=== PATIENT | male | born 1960 | race Caucasian/White ===

== ENCOUNTER 2016-08-29 12:44 | Emergency (ER) | payer OTHER ==
[~2016-08-29] VITALS: Ht 175.3 cm; Wt 108.9 kg
[~2016-08-29 12:44] MED LIST: ASPI-482 PO
[2016-08-29 13:29] LABS: BASO % 1 % (0-3); EOS % 1 % (0-3); HEMATOCRIT 45.2 % (39.0-53.0); HEMOGLOBIN 15.7 g/dL (13.0-17.5); LYMPH # 1.4 x10^3/uL (1.0-4.8); LYMPH % 18 % (24-48); MEAN CORPUSCULAR HEMOGLOBIN 29 pg (25-35); MEAN CORPUSCULAR HGB CONC 35 g/dL (31-37); MEAN CORPUSCULAR VOLUME 84 fL (79-100); MONO % 9 % (0-9); NEUT % 72 % (31-73); PLATELET COUNT 287 x10^3/uL (140-400); RED CELL DISTRIBUTION WIDTH 14.3 % (11.5-14.5); WHITE BLOOD COUNT 7.6 x10^3/uL (4.0-11.0)
--- NOTE | 2016-08-29 13:54 | RAD ---
Exam performed: Left lower extremity venous Doppler. Clinical Indication: Left leg pain and swelling Date of Service:08/29/16 Comparison : None available Discussion: Multiple longitudinal and transverse high resolution real-time images of the venous system of left lower extremity were obtained with color and Doppler sampling and spectral analysis. The common femoral, superficial femoral, popliteal and proximal calf veins are all patent and demonstrate normal flow and compressibility. Normal respiratory phasicity and augmentation is present. Impression: Normal color duplex ultrasound of the venous system of left lower extremity.
--- NOTE | 2016-08-29 13:57 | PHYS DOC ---
Past Medical History Past Medical History: No Pertinent History Past Surgical History: Tonsillectomy Alcohol Use: Occasionally Drug Use: None Adult General Chief Complaint Chief Complaint: left leg pain swelling HPI HPI Patient is a 56 year old male who presents with left leg pain. He's noted pain and swelling since Friday, 2 days ago. [place] [facility] [place] and negative, but the swelling has increased as has the pain. Patient's not take anything for the symptoms, no known injuries. 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 No history of DVTs, no trauma or falls noted. It does worsen when he bears weight on the leg, he has full range of motion, no fevers. Review of Systems Review of Systems Constitutional: Denies fever or chills [] Eyes: Denies change in visual acuity, redness, or eye pain [] HENT: Denies nasal congestion or sore throat [] Respiratory: Denies cough or shortness of breath [] Cardiovascular: Denies chest pain GI: Denies abdominal pain, nausea, vomiting, bloody stools or diarrhea [] : Denies dysuria or hematuria [] Musculoskeletal: Denies back pain Integument: Denies rash or skin lesions [] Neurologic: Denies headache, focal weakness or sensory changes [] Allergies Allergies Allergies Coded Allergies Type Severity Reaction Last Updated Verified No Known Drug Allergies 02/24/15 No Physical Exam Physical Exam Constitutional: Well developed, well nourished, no acute distress, non-toxic appearance. [] HENT: Normocephalic, atraumatic, bilateral external ears normal, oropharynx moist, no oral exudates, nose normal. [] Eyes: PERRLA, EOMI, conjunctiva normal, no discharge. [] Neck: Normal range of motion, no tenderness, supple, no stridor. [] Cardiovascular:Heart rate regular rhythm, no murmur [] Lungs & Thorax: Bilateral breath sounds clear to auscultation []Back: No tenderness, no CVA tenderness. [] Extremities: left LE with trace edema/knee effusion, FROM, + ttp in proximal calf but neg homen's. Neurologic: Alert and oriented X 3, normal motor function, normal sensory function, no focal deficits noted. [] Psychologic: Affect normal, judgement normal, mood normal. [] Current Patient Data Vital Signs Vital Signs Date Time Temp Pulse Resp B/P (MAP) Pulse Ox O2 Delivery O2 Flow Rate FiO2 08/29/16 14:00 82 153/94 (113) 92 Room Air 08/29/16 12:45 97.9 18 97.9 Lab Values Laboratory Tests Test 08/29/16 13:10 08/29/16 13:57 White Blood Count 7.6 x10^3/uL (4.0-11.0) Red Blood Count 5.40 x10^6/uL (4.30-5.70) Hemoglobin 15.7 g/dL (13.0-17.5) Hematocrit 45.2 % (39.0-53.0) Mean Corpuscular Volume 84 fL (79-100) Mean Corpuscular Hemoglobin 29 pg (25-35) Mean Corpuscular Hemoglobin Concent 35 g/dL (31-37) Red Cell Distribution Width 14.3 % (11.5-14.5) Platelet Count 287 x10^3/uL (140-400) Neutrophils (%) (Auto) 72 % (31-73) Lymphocytes (%) (Auto) 18 % (24-48) L Monocytes (%) (Auto) 9 % (0-9) Eosinophils (%) (Auto) 1 % (0-3) Basophils (%) (Auto) 1 % (0-3) Neutrophils # (Auto) 5.5 x10^3uL (1.8-7.7) Lymphocytes # (Auto) 1.4 x10^3/uL (1.0-4.8) Monocytes # (Auto) 0.7 x10^3/uL (0.0-1.1) Eosinophils # (Auto) 0.1 x10^3/uL (0.0-0.7) Basophils # (Auto) 0.0 x10^3/uL (0.0-0.2) POC Hemoglobin 16.0 g/dL (14-18) POC Hematocrit 47 % (37-52) POC Sodium 137 mmol/L (135-145) POC Potassium 3.7 mmol/L (3.5-5.0) POC Chloride 98 mmol/L (98-110) POC Total CO2 23 mmol/L (23-32) Anion Gap 21 mmol/L (6-14) H POC Blood Urea Nitrogen 17 mg/dL (8-26) POC Creatinine 0.9 mg/dL (0.5-1.4) Glucose Level 135 mg/dL (70-99) H POC Ionized Calcium (Mathew) 1.14 mmol/L (1.13-1.32) Laboratory Tests 08/29/16 13:10 Laboratory Tests 08/29/16 13:57 EKG EKG [] Radiology/Procedures Radiology/Procedures US venous doppler left leg: Exam performed: Left lower extremity venous Doppler. Clinical Indication: Left leg pain and swelling Date of Service:08/29/16 Comparison : None available Discussion: Multiple longitudinal and transverse high resolution real-time images of the venous system of left lower extremity were obtained with color and Doppler sampling and spectral analysis. The common femoral, superficial femoral, popliteal and proximal calf veins are all patent and demonstrate normal flow and compressibility. Normal respiratory phasicity and augmentation is present. Impression: Normal color duplex ultrasound of the venous system of left lower extremity. [] Course & Med Decision Making Course & Med Decision Making Pertinent Labs and Imaging studies reviewed. (See chart for details) Patient declined any pain medication. No signs of DVT on venous ultrasound. 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 Recommended compressive dressing, elevation, ibuprofen, return precautions given for any signs of compartment syndrome, infection, fever. Follow-up with PCP. Latanya Disclaimer Dragon Disclaimer This electronic medical record was generated, in whole or in part, using a voice recognition dictation system. Departure Departure Impression: Primary Impression: Peripheral edema Disposition: HOME, SELF-CARE Condition: STABLE Referrals: NO PCP (PCP) Scripts Ibuprofen (IBUPROFEN) 600 Mg Tablet 600 MG PO PRN Q6HRS Y for INFLAMMATION, #20 TAB take with food or milk Prov: ELISEO DELGADO MD 08/29/16 ELISEO DELGADO MD August 29, 2016 13:57
[2016-08-29 14:00] VITALS: BP 153/94
[2016-08-29 14:05] LABS: POTASSIUM ISTAT 3.7 mmol/L (3.5-5.0)
[2016-08-29] MEDS ORDERED: IBUP-1007 PO (14:36)
== END 2016-08-29 14:40 | disposition home or self-care (01) ==
LOC: ER 12:44
DX: R60.0 Localized edema (principal)
CPT/HCPCS: 36415; 80047; 85027; 93971; 99285-25

== ENCOUNTER 2017-01-07 12:20 | Inpatient (IN) | payer OTHER ==
[2017-01-07] VITALS (12 sets, daily range): BP systolic 114–146; BP diastolic 70–98
[~2017-01-07] VITALS: Ht 175.3 cm; Wt 106.3 kg
[~2017-01-07 12:20] MED LIST changes: +IBUP-1007 PO
[2017-01-07] MEDS ORDERED: IOHEXOL 350 MG/ML 100 ML VIAL. ONE (12:47)
[2017-01-07] MEDS ORDERED: LIDOCAINE 2% 20 ML VIAL. ONE (12:48)
[2017-01-07] MEDS ORDERED: VERAPAMIL 5 MG/2 ML VIAL. ONE (13:13)
[2017-01-07] MEDS ORDERED: MIDAZOLAM HCL/PF 2 MG/2 ML VIAL. ONE ×2 (13:13→13:35)
[2017-01-07] MEDS ORDERED: HEPARIN for IV BOLUS 10,000 UNIT/10 ML VIAL. ONE (13:13)
[2017-01-07] MEDS ORDERED: fentaNYL PF VIAL 100 MCG/2 ML VIAL ONE (13:14)
[2017-01-07] MEDS ORDERED: NITROGLYCERIN 200 MCG/2 ML SYRINGE FOR CATH/VASC LAB. ONE (13:14)
--- NOTE | 2017-01-07 13:32 | PDOC ---
MODERATE SEDATION ASSESSMENT RISKS/ALTERNATIVES Risks/Alternatives Risks and alternatives of this type of sedation and procedure discussed with: RISK/ALTERNATIVES: Patient H & P ON CHART H & P H & P on chart and reviewed for co-morbid conditions and appropriate labs. H&P ON CHART: Yes STATUS PREG STATUS ASSESSED: N/A MEDS/ALLERGIES REVIEWED Meds/Allergies Reviewed Medications and Allergies including time and route of recently administered narcotics and sedatives. MEDS/ALLERGIES REVIEWED: Yes ASA RATING ASA RATING: III AIRWAY ASSESSMENT Airway Assessment Airway patency, oral function limitations, presence of caps, crowns, dentures, partials, and ability to extend neck assessed. AIRWAY ASSESSMENT: Yes MALLAMPATI SCORE MALLAMPATI SCORE: II PRE-SEDATION ASSESSMENT PRE-SEDATION ASSESSMENT: Yes JUAN PABLO COLEMAN MD Jan 07, 2017 13:32
[2017-01-07] MEDS ORDERED: VERAPAMIL 5 MG/2 ML VIAL. IART ONE (13:45)
[2017-01-07] MEDS ORDERED: NITROGLYCERIN 200 MCG/2 ML SYRINGE FOR CATH/VASC LAB. IART ONE (13:45)
[2017-01-07] MEDS ORDERED: fentaNYL PF VIAL 100 MCG/2 ML VIAL IV ONE (13:45)
[2017-01-07] MEDS ORDERED: MIDAZOLAM HCL/PF 2 MG/2 ML VIAL. IV ONE ×2 (13:45)
[2017-01-07] MEDS ORDERED: LIDOCAINE 2% 20 ML VIAL. IJ ONE (13:45)
[2017-01-07] MEDS ORDERED: IOHEXOL 350 MG/ML 100 ML VIAL. IART ONE (13:45)
[2017-01-07] MEDS ORDERED: HEPARIN for IV BOLUS 10,000 UNIT/10 ML VIAL. IART ONE (13:45)
[2017-01-07] MEDS ORDERED: ADENOSINE 90 MG/30 ML VIAL. IV ONE (13:59)
[2017-01-07] MEDS ORDERED: CONTRAST GIVEN MC PRN (14:00)
[2017-01-07] MEDS ORDERED: ATROPINE 0.5 MG/5 ML DISP.SYRIN. ONE (14:12)
[2017-01-07] MEDS ORDERED: TIROFIBAN 12.5MG -0.9% NS 250 ML IV ONE (14:12)
[2017-01-07] MEDS ORDERED: HEPARIN for IV BOLUS 10,000 UNIT/10 ML VIAL. IV ONE (14:15)
[2017-01-07] MEDS ORDERED: ADENOSINE 90 MG in IV NORMAL SALINE 50ML 90 ML IV ONE (14:15)
[2017-01-07] MEDS: TIROFIBAN 12.5MG -0.9% NS 250 ML IV PRN ×2 (14:17→23:32)
[2017-01-07] MEDS ORDERED: TICAGRELOR 90 MG TABLET. ONE (14:36)
[2017-01-07] MEDS ORDERED: TICAGRELOR 90 MG TABLET. PO ONE (15:00)
[2017-01-07] MEDS ORDERED: ATOR40TA PO (19:57)
[2017-01-07] MEDS ORDERED: LISI1TAB3 PO (19:57)
[2017-01-07] MEDS ORDERED: ATORVASTATIN CALCIUM 40 MG TABLET. PO SCH (23:00)
[2017-01-07] MEDS: TICAGRELOR 90 MG TABLET. PO SCH (23:06)
[2017-01-08 03:05] VITALS: BP 117/85
[2017-01-08 07:00] VITALS: BP 122/87
[2017-01-08] MEDS ORDERED: ASPIRIN ENTERIC COATED 81 MG TABLET.DR. PO SCH (08:00)
[2017-01-08] MEDS: TICAGRELOR 90 MG TABLET. PO SCH (09:46)
--- NOTE | 2017-01-08 09:48 | CARD ---
APPROVED REPORT Procedure(s) performed: MODERATE SEDATION: 90 MIN Coronary angiography FFR LAD, LCx PCI of the RCA HISTORY The patient is a 56 year-old male with a history of : hypertension, dyslipidemia. INDICATION The indication(s) include : unstable angina . PROCEDURE NARRATIVE The patient was brought electively to the cardiac catheterization lab. A timeout was performed confi rming the patient's name, date of , procedure, and site of procedure. All necessary personnel w ere wearing the appropriate protective equipment and radiation monitor devices. After explaining the risks and benefits of the procedure and alternatives, informed consent was obtained. (See nursing no yani for medications administered). The right wrist was sterilely prepped and draped in the usual fas hion. The right wrist was infiltrated with 1 mL of 2% lidocaine for subcutaneous anesthesia. A 6 Fr ench Terumo glide sheath was inserted into the right radial artery without difficulty. Right and lef t coronary angiography was performed using a 6Fr TIG 4.0 catheter. CORONARY ANGIOGRAPHY: LM is a large caliber vessel with normal angiographic appearance. LAD is a large caliber vessel with a mid 50% stenosis at the origin of D1. D1 is a moderate caliber vessel with an ostial 50% stenosis. LCx is a moderate to large caliber non-dominant vessel with a mid 60% stenosis at the origin of OM1. OM1 is a moderate caliber vessel with normal angiographic appearance. LPL is a large caliber vesse with a proximal 20% stenosis. RCA is a large caliber dominant vessel with a long proximal to mid 60-80% stenosis. RPDA is a moderate caliber vessels with normal angiographic appearance. INTERVENTIONAL TECHNIQUE: FFR OF THE LAD/LCX Due to the presenting symptoms with unstable angina and intermediate LAD/Lcx lesions, an iFR and FFR study was performed. Heparin was used for anticoagulation to achieve an ACT > 200. Through a 6F EBU 3 .5 guide catheter, a 0.014'' [place] Pressure wire was advanced to the distal LAD after appropriate n ormalization. iFR was 0.89 and FFR was 0.83. Next, the wire was directed into the Lcx, and an iFR was 0.96. Due to normal values, further intervention was deferred. INTERVENTIONAL TECHNIQUE: PCI OF THE RCA Tirofiban was also administered in addition to Heparin. Through a 6F JR4 guide catheter, a 0.014'' pr owater wire was advanced to the distal RCA. Next, a 2.5/20 balloon was used perform angioplasty after which the lesion was stented with overlapping 3.0/33 and 3.25/8 Xience MARCIN. The lesion stents were p ost-dilated in the proximal half with a 3.5 NC compliant balloon. The patient tolerated the procedure well and there were no immediate complications. All catheter exchanges and advancements were performed over a guidewire. At case completion the rig ht radial sheath was removed and a Terumo radial band was applied with 13 ml of air. The patient blane erated the procedure well and there were no immediate complications.The patient was given 180mg of Ti cagrelor at case completion. Conclusion 1. Three vessel CAD 2. Negative FFR of the Lcx and LAD 3. Successful PCI of the RCA. Recommendations ASA 81mg daily indefinitely Ticagrelor 90mg bid x 1 year Statin therapy Cardiac rehab
[2017-01-08] MEDS ORDERED: METO25TA4 PO (10:32)
[2017-01-08] MEDS ORDERED: LISI10TA2 PO (10:32)
[2017-01-08] MEDS ORDERED: TICA90TA PO (10:32)
[2017-01-08] MEDS ORDERED: NITR0.4T22 SL (10:58)
[2017-01-08 11:00] VITALS: BP 135/76
--- NOTE | 2017-01-08 14:32 | PDOC3 ---
Discharge Summary Visit Information Date of Admission: Jan 07, 2017 Date of Discharge: Jan 08, 2017 Admitting Diagnosis Comment: Exertional chest pain Hypertension Hyperlipidemia Final Diagnosis CAD Hypertension Hyperlipidemia Brief Hospital Course Allergies Allergies Coded Allergies Type Severity Reaction Last Updated Verified No Known Drug Allergies 02/24/15 No Vital Signs Vital Signs Date Time Temp Pulse Resp B/P (MAP) Pulse Ox O2 Delivery O2 Flow Rate FiO2 01/08/17 11:00 98.3 75 19 135/76 (95) 95 Room Air 98.3 Brief Hospital Course Mr. Livingston is a 56 old male who presented to [facility] with complaints of exertional dyspnea relieved with nitroglycerin, which gave suspicion for angina. AMI was ruled out. Recent MPI was normal, but given presenting symptoms/recurrent chest pain, significant family history of premature coronary disease, and multiple risk factors, transfer to [facility] for cardiac cath for definitive evaluation was recommended. Coronary angiogram revealed three vessel CAD with negative FFR of the Lcx and LAD. Patient underwent successful PCI with overlapping 3.0/33 and 3.25/8 Xience MARCIN. Patient tolerated procedure well and was monitored overnight without acute complications. Right radial arteriotomy site soft, clean, and dry. No erythema , ecchymosis, or hematoma present. Neurovascular status intact. Lungs CTA. Telemetry without significant arrhythmia. DAPT with ASA and Brilinta initiated along with addition of BB. Post procedure instructions reviewed and handout provided. Patient to follow up in our office with Dr. Cortes in 4 weeks. Referred to cardiac rehab. Discharge Information Condition at Discharge: Improved Follow Up: Weeks (4) Disposition/Orders: D/C to Home Scheduled Aspirin (Aspir 81), 1 TAB PO DAILY, (Reported) Atorvastatin Calcium (Lipitor), 1 TAB PO QHS, (Reported) Lisinopril (Lisinopril), 1 TAB PO DAILY Metoprolol Tartrate (Metoprolol Tartrate), 1 TAB PO BID Ticagrelor (Brilinta), 90 MG PO BID Scheduled PRN Nitroglycerin (NITROGLYCERIN SubLingual), 0.4 MG SL PRN Q5MIN PRN for CHEST PAIN Discontinued Medications Ibuprofen (Ibuprofen), 600 MG PO PRN Q6HRS PRN for INFLAMMATION Lisinopril/Hydrochlorothiazide (Lisinopril-Hctz 10-12.5 Mg Tab), 1 TAB PO DAILY, (Reported) Patient Instructions Patient Instructions GENERAL INSTRUCTIONS: 1. Your dressing should be removed prior to leaving the hospital. 2. It is OK to shower the day after your procedure. 3. If you received stents, be sure to carry your stent information card with you in your wallet/purse at all times. 4. Call the office immediately at [phone] if you notice any fever or if there is redness, worsening tenderness/pain, increased bruising, or drainage from the puncture site. 5. Should you have bleeding from the site, lie down immediately & put pressure on the site. The pressure should be hard enough to stop the bleeding. Have the nearest person call 911. DO NOT try to drive to the ER with active bleeding. 6. If you notice a change in color, coolness to touch, or loss of feeling in the affected extremity, come to the emergency room. Please have someone drive you or call 911 if no one is available. DO NOT drive yourself. 7. If you normally take glucophage (metformin), please do not take this medicine for 48 hours following your procedure. 8. DO NOT STOP TAKING YOUR PLAVIX OR ASPIRIN UNLESS IT IS CLEARED BY A OFFAL TRIMMER OF YOUR ANALYTICS CONSULTANT AT OUR OFFICE. 9. QUIT SMOKING: the [place] [employer], [place] [employer], & [place] [employer] have cessation resources available on their websites 10. Please have someone available to drive you home from the hospital as you may be limited by sedation medications given during the procedure. Radial Artery (Wrist) access: 1. No pushing, pulling, lifting, typing, or anything that requires repetitive use/movement of the affected wrist for 3 days following your procedure. 2. OK to drive the day following your procedure. (This is because of effects of sedating medications.) Call the office at [phone] for any questions or concerns. MARKELL CASTELAN APRN Jan 08, 2017 14:32
--- NOTE | 2017-01-08 15:14 | CARD ---
APPROVED REPORT EXAM: Two-dimensional and M-mode echocardiogram with Doppler and color Doppler. Other Information Quality : Average Rhythm : NSR INDICATION Cardiac Disease: CAD 2D DIMENSIONS RVDd3.5 (2.9-3.5cm)Left Atrium(2D)4.0 (1.6-4.0cm) IVSd1.1 (0.7-1.1cm)Aortic Root(2D)3.1 (2.0-3.7cm) LVDd5.1 (3.9-5.9cm)LVOT Diameter2.2 (1.8-2.4cm) PWd1.1 (0.7-1.1cm)LVDs3.3 (2.5-4.0cm) FS (%) 35.7 %SV81.8 ml LVEF(%)64.9 (>50%) Aortic Valve AoV Peak Pablo.115.2cm/sAoV VTI23.6cm AO Peak GR.5.3mmHgLVOT Peak Pablo.93.5cm/s LVOT VTI 19.02cmAO Mean GR.3mmHg ANDRIY (VMAX)3.38or4MMQ (VTI)3.13cm2 Mitral Valve MV E Sqpkebuo37.7cm/sMV DECEL [id number] MV A Fvhjqbsu41.1cm/sMV ESR12op E/A Ratio1.2MV A [id number] MVA (PHT)4.58cm2 TDI E/Lateral E'5.6E/Medial E'8.7 Pulmonary Valve PV Peak Gqhsjkbj34.5cm/sPV Peak Grad.3mmHg RVOT VTI14.0cm Tricuspid Valve TR P. Wxtxbjar087ep/sRAP [id number] TR Peak Gr.35msKaMMCZ90qkAp LEFT VENTRICLE The left ventricle is normal size. There is normal left ventricular wall thickness. Left ventricle sy stolic function is normal. The Ejection Fraction is 60-65%. There is normal LV segmental wall motion. The left ventricular diastolic function and filling is normal for age. There is no ventricular septa l defect visualized. RIGHT VENTRICLE The right ventricle is normal size. The right ventricular systolic function is normal. ATRIA The left atrium size is normal. The right atrium size is normal. The interatrial septum is intact wit h no evidence for an atrial septal defect or patent foramen ovale as noted on 2-D or Doppler imaging. AORTIC VALVE The aortic valve is mildly calcified. The aortic valve is trileaflet. Doppler and Color Flow revealed no significant aortic regurgitation. There is no significant aortic valvular stenosis. MITRAL VALVE The mitral valve is normal in structure and function. There is no mitral valve stenosis. Doppler and Color Flow revealed mild mitral regurgitation. TRICUSPID VALVE The tricuspid valve is normal in structure and function. Doppler and Color Flow revealed mild tricusp id regurgitation. The PA pressure was estimated at 27 mmHg. There is no tricuspid valve stenosis. PULMONIC VALVE The pulmonic valve is not well visualized. Doppler and Color Flow revealed no pulmonic valvular regur gitation. There is no pulmonic valvular stenosis. GREAT VESSELS The aortic root is normal in size. The ascending aorta is normal in size. The IVC was not visualized. PERICARDIAL EFFUSION There is no evidence of significant pericardial effusion. Critical Notification Critical Value: No <Conclusion> Left ventricle systolic function is normal. The Ejection Fraction is 60-65%. There is normal LV segmental wall motion. Mild mitral regurgitation. Mild tricuspid regurgitation. The PA pressure was estimated at 27 mmHg. There is no evidence of significant pericardial effusion.
== END 2017-01-08 16:00 | disposition home or self-care (01) | DRG 247 ==
LOC: 2 NORTH 12:34
PROVIDERS: ADMIT Internal Medicine Cardiovascular Disease; ATTEND Internal Medicine Cardiovascular Disease
PROC: 027034Z Dilation of Coronary Artery, One Artery with Drug-eluting Intraluminal Device, Percutaneous Approach (ICD-10-PCS; principal; 2017-01-08)
PROC: 4A023N7 Measurement of Cardiac Sampling and Pressure, Left Heart, Percutaneous Approach (ICD-10-PCS; 2017-01-08)
PROC: B2111ZZ Fluoroscopy of Multiple Coronary Arteries using Low Osmolar Contrast (ICD-10-PCS; 2017-01-08)
DX: I25.110 Atherosclerotic heart disease of native coronary artery with unstable angina pectoris (principal); I10 Essential (primary) hypertension; E78.5 Hyperlipidemia, unspecified; Z82.49 Family history of ischemic heart disease and other diseases of the circulatory system
CPT/HCPCS: 92928; 93306; 93454; 93571; 93572; 99152; 99153; C1725; C1769; C1874; C1887; C1892; J0153; J1644; J2250; J3010; J3490; Q9967; J2001; J3246